=== PATIENT | female | born 1945 | race Caucasian/White ===

== ENCOUNTER 2021-12-12 19:16 | Emergency (ER) | payer MEDICARE, SELFPAY ==
--- NOTE | 2021-12-12 19:18 | ED.GENADULT ---
HPI - General Adult General Chief complaint: Urogenital-Female Stated complaint: UTI SYMPTOMS Time Seen by Provider: 12/12/21 19:18 Source: patient Mode of arrival: ambulatory Limitations: no limitations History of Present Illness HPI narrative: 76-year-old female patient presents to the [facility] with complaints of urinary tract infection symptoms. Patient states symptoms started a couple of days ago with low back pain and is gotten worse with increasing frequency of urination, cloudy urine and some discomfort with urination. Denies fevers, body aches or chills. Denies nausea, vomiting or diarrhea. Related Data Allergies Allergy/AdvReac Type Severity Reaction Status Date / Time No Known Allergies Allergy Unverified 12/21/14 15:09 Review of Systems Review of Systems: CONSTITUTIONAL: Denies fever, chills, or sweats. EYES: Denies visual changes, redness, or discharge. ENT: Denies rhinorrhea, congestion, sore throat, or otalgia. CARDIOVASCULAR: Denies chest pain, palpitations, or edema. RESPIRATORY: Denies cough or dyspnea. GASTROINTESTINAL: Denies abdominal pain, nausea, vomiting, or diarrhea. GENITOURINARY: Positive dysuria denies gross hematuria. SKIN: Denies rash or itching. MUSCULOSKELETAL: Denies back pain, joint pain, or myalgia. NEUROLOGIC: Denies headache, numbness, or weakness. PSYCHIATRIC: Denies anxiety or depression. [facility] Past Medical History Medical History (Updated 12/12/21 @ 19:37 by CULLEN Ferrer) Endometriosis Foot fracture Hypercholesteremia Pneumonia Surgical History Surgical History (Updated 12/12/21 @ 19:19 by CULLEN Ferrer) History of hysterectomy History of tonsillectomy Comments At the time of my signature I agree with nursing past medical history, surgical, social, and family history. There is no relevant family history pertinent to the presenting complaint. Exam Narrative: GENERAL: Well-appearing, well-nourished, and in no acute distress. HEAD: Normocephalic, atraumatic. EYES: PERRLA and EOMI. ENT: Nares clear, no rhinorrhea or epistaxis. Mucous membranes moist. NECK: Supple. No lymphadenopathy CHEST: Clear to auscultation. No respiratory distress. HEART: Regular rate and rhythm. No murmur heard. Normal peripheral pulses. ABDOMEN: Soft, nontender, nondistended, normal active bowel sounds. Slight CVA tenderness noted to the left side EXTREMITIES: Normal range of motion. No edema. SKIN: Warm, dry, no rash. NEURO: No focal deficits. Alert and oriented x3. Course Course Level of Care: Express Care Visit Vital Signs Vital signs: Vital Signs Temperature 36.1 C L 12/12/21 19:24 Pulse Rate 86 12/12/21 19:24 Respiratory Rate 16 12/12/21 19:24 Blood Pressure 141/62 H 12/12/21 19:24 Pulse Oximetry 98 12/12/21 19:24 Temperature 36.1 C L 12/12/21 19:24 Pulse Rate 86 12/12/21 19:24 Respiratory Rate 16 12/12/21 19:24 Blood Pressure 141/62 H 12/12/21 19:24 Pulse Oximetry 98 12/12/21 19:24 Vital signs reviewed The patient has been informed that they may have pre-hypertension or Hypertension based on a BP reading in the department. I recommend that the patient call the primary care provider listed on their discharge instructions or a physician of their choice this week to arrange follow up for further evaluation of possible pre-hypertension or Hypertension Medical Decision Making Differential Diagnosis Differential Diagnosis: Differential diagnosis: Uncomplicated lower UTI, uncomplicated UTI, pyelonephritis Discussed with patient that based on her urine dip it does appear that she has a urinary tract infection. Patient notified that we will go ahead and start her on antibiotics today and to increase her water intake. Discussed with patient we will send off a culture to the lab and if the culture comes back showing that she needs a different type of antibiotic we will call and change it at that time. Patient verbalized understanding denies a
[2021-12-12 19:24] VITALS: BP 141/62; PULSE 86; RESP 16; TEMP 36.1; O2SAT 98
== END 2021-12-12 20:02 | disposition home or self-care (01) ==
PROVIDERS: Emergency Provider Nurse Practitioner Family; PCP Internal Medicine
DX: N30.01 Acute cystitis with hematuria (principal); N80.9 Endometriosis, unspecified; E78.00 Pure hypercholesterolemia, unspecified
CPT/HCPCS: 81003; 87077; 87086; 87186; 99203; G0463